=== PATIENT | female | born 1970 | race Caucasian/White ===

== ENCOUNTER → 2016-10-07 | Day surgery (SDC) | payer OTHER ==
[~2016-10-07] MED LIST: COZAAR50 MG PO; HYDROCHLOROTHIA25 MG PO; NAPROSYN PO; NORCO 7.5-3251 EACH PO; ZOFRAN8 MG PO
[2016-10-07 09:22] LABS: HEMOGLOBIN 15.3 gm/dl (12.3-15.3); RED BLOOD COUNT 4.85 M/UL (4.00-5.10); WHITE BLOOD COUNT 8.3 K/UL (4.5-11.0)
== END | disposition home or self-care (01) ==
LOC: OR 08:44
PROVIDERS: Anesthesiology; Obstetrics & Gynecology
PROC: 0WQF4ZZ Repair Abdominal Wall, Percutaneous Endoscopic Approach (ICD-10-PCS; 2016-10-07)
PROC: 0UT54ZZ Resection of Right Fallopian Tube, Percutaneous Endoscopic Approach (ICD-10-PCS; principal; 2016-10-07 13:30)
PROC: 0UB04ZZ Excision of Right Ovary, Percutaneous Endoscopic Approach (ICD-10-PCS; 2016-10-07 13:30)
DX: D27.0 Benign neoplasm of right ovary (principal); K44.9 Diaphragmatic hernia without obstruction or gangrene; I10 Essential (primary) hypertension; F17.210 Nicotine dependence, cigarettes, uncomplicated; Z98.51 Tubal ligation status; Z83.3 Family history of diabetes mellitus; Z82.49 Family history of ischemic heart disease and other diseases of the circulatory system; Z88.6 Allergy status to analgesic agent; Z90.49 Acquired absence of other specified parts of digestive tract; Z90.89 Acquired absence of other organs
CPT/HCPCS: 36415; 80048; 81001; 85025; J0690; J1100; J2405; J2710; J2795; J3010; J7120

== ENCOUNTER 2022-01-29 10:14 | Emergency (ER) | payer OTHER ==
[~2022-01-29 10:14] MED LIST changes: +COZAAR25 MG PO; +MICROZIDE12.5 MG PO
[2022-01-29 10:57] LABS: HEMOGLOBIN 14.6 gm/dl (12.3-15.3); RED BLOOD COUNT 4.81 M/UL (4.00-5.10); WHITE BLOOD COUNT 15.7 K/UL (4.5-11.0)
[2022-01-29 11:30] LABS: BUN/CREATININE RATIO 23 (0-10)
== END 2022-01-29 15:21 | disposition short-term general hospital (02) ==
LOC: ER1 10:14
PROVIDERS: Emergency Medicine
DX: N13.6 Pyonephrosis (principal); Z90.89 Acquired absence of other organs; Z88.5 Allergy status to narcotic agent
CPT/HCPCS: 80053; 81001; 83690; 85025; 86140; 96374; 96375; 96376; 99285; J0696; J1170; J1885; J2405